=== PATIENT | male | born 1970 | race Caucasian/White ===

== ENCOUNTER 2020-05-01 16:15 | Outpatient (CLI) | payer SELFPAY ==
--- NOTE | ~2020-05-01 | CT_ITS ---
EXAMINATION: CT pelvis wo con DATE: 05/01/2020 16:54 INDICATION: Left lower quadrant pain TECHNIQUE: Computed tomography (CT) of the pelvis was performed without intravenous contrast. The dos e-length product was 152.13 mGy-cm. Automated exposure control and iterative reconstruction technique were employed. COMPARISON: None FINDINGS: There is a urachal remnant of the bladder containing a calcification, image 53. Nonobstruct pj bowel gas pattern. Mild atherosclerosis. No lymphadenopathy. No abnormal pelvic masses or fluid c ollections. No free air or free fluid. No acute osseous abnormality. There is grade 1 spondylolisthes is at L4-5 and L5-S1. IMPRESSION: 1. No acute pelvic abnormalities. 2: Urachal remnant containing punctate calcification, nonspecific. Reviewed, dictated and finalized at location A. [employer]
== END 2020-05-01 16:16 | disposition home or self-care (01) ==
PROVIDERS: PCP Family Medicine; Visit Provider Surgery
DX: R10.32 Left lower quadrant pain (principal)
CPT/HCPCS: 72192

== ENCOUNTER → 2020-07-01 06:51 | Outpatient (CLI) | payer SELFPAY ==
[2020-07-01 22:49] LABS: SARS-CoV-2 RNA PCR Negative
== END ==
PROVIDERS: PCP Family Medicine; Visit Provider Family Medicine
DX: Z20.822 Contact with and (suspected) exposure to COVID-19 (principal)
CPT/HCPCS: C9803; U0003; U0005

== ENCOUNTER → 2020-08-07 08:16 | Outpatient (CLI) | payer OTHER, SELFPAY ==
[2020-08-07 20:13] LABS: SARS-CoV-2 RNA PCR Negative
== END ==
PROVIDERS: PCP Family Medicine; Visit Provider Family Medicine
DX: R68.89 Other general symptoms and signs (principal); Z20.822 Contact with and (suspected) exposure to COVID-19
CPT/HCPCS: C9803; U0003; U0005

== ENCOUNTER → 2020-08-11 06:50 | Outpatient (CLI) | payer OTHER, SELFPAY ==
[2020-08-11 19:21] LABS: SARS-CoV-2 RNA PCR Negative
== END ==
PROVIDERS: PCP Family Medicine; Visit Provider Family Medicine
DX: Z20.822 Contact with and (suspected) exposure to COVID-19 (principal)
CPT/HCPCS: C9803; U0003; U0005

== ENCOUNTER → 2021-04-11 02:43 | Outpatient (CLI) | payer SELFPAY ==
[2021-04-11 17:58] LABS: SARS-CoV-2 RNA PCR Negative
== END ==
PROVIDERS: PCP Family Medicine; Visit Provider Family Medicine
DX: R68.89 Other general symptoms and signs (principal); Z20.822 Contact with and (suspected) exposure to COVID-19
CPT/HCPCS: C9803; U0003; U0005